=== PATIENT | male | born 1975 | race Hispanic/Latino ===

== ENCOUNTER 2017-12-14 14:21 | Emergency (ER) | payer SELFPAY ==
[~2017-12-14 14:21] MED LIST: Sodium Chloride 0.9% 1,000 ML BAG ONE
[2017-12-14] MEDS ORDERED: Ibuprofen 800 MG TAB ONE (14:36)
[2017-12-14] MEDS ORDERED: HYDROcodone/Acetaminophen 10/325 mg Tablet ONE (14:36)
--- NOTE | 2017-12-14 15:33 | RAD ---
RIGHT FOOT 3 VIEWS: HISTORY: Injury. Pain. COMPARISON: None. FINDINGS: Soft tissue swelling in the mid foot. Fracture involving the proximal 2nd metatarsal. There is late ral divergence. There may be subluxation of the 5th metatarsal with respect to the cuboid bone. The possibility of Lisfranc injury cannot be completely excluded. There is subluxation of the 3rd metat arsal with respect to the lateral cuneiform bone. IMPRESSION: Extensive mid foot injury. The possibility of Lisfranc injury cannot be excluded. POS: ROGER
== END 2017-12-14 15:04 | disposition short-term general hospital (02) ==
LOC: MADERS 14:21
DX: S92.321A Displaced fracture of second metatarsal bone, right foot, initial encounter for closed fracture (principal); W20.8XXA Other cause of strike by thrown, projected or falling object, initial encounter
CPT/HCPCS: J7050

== ENCOUNTER 2023-12-23 19:59 | Emergency (ER) | payer SELFPAY ==
[2023-12-23] MEDS ORDERED: Naproxen 500 MG TAB ONE (20:24)
[2023-12-23] MEDS ORDERED: Acetaminophen 500 MG TAB ONE (20:24)
== END 2023-12-23 21:16 | disposition home or self-care (01) ==
LOC: MADERS 19:59
DX: M70.51 Other bursitis of knee, right knee (principal); M70.52 Other bursitis of knee, left knee